=== PATIENT | female | born 1980 | race Caucasian/White ===

== ENCOUNTER 2017-10-18 16:53 | Emergency (ER) | payer BC, SELFPAY ==
[2017-10-18 17:12] VITALS: BP 129/75; PULSE 89; RESP 18; TEMP 36.8; O2SAT 98; BMI 28.8
--- NOTE | 2017-10-18 17:23 | HMH.EDUTC ---
[facility] [place]ression: Otitis media Qualifiers: Otitis media type: unspecified Laterality: right Qualified Code(s): H66.91 - Otitis media, unspecified, right ear Disposition: Home, Self-Care Condition on Discharge: Good Instructions: Middle Ear Infection, Ear Infections (Middle Ear) (Alternative Therapy), Migraine Headaches (Alternative Therapy), Migraine -- Adult, DI for Sinus Headache, DI for Headache Additional Instructions: Follow up with family doctor Take medication as prescribed Return if needed Warm compresses on ear may help with pain Over the counter Motrin or Tylenol as needed for fever or pain Prescriptions: Amoxicillin [Amoxicillin 500mg Cap] 500 mg PO TID #30 cap Referrals: Demetria Dias PA [Primary Care Provider] - Time of Disposition: 17:36 Medical Decision Making - Medical Records Medical records reviewed: Yes: I reviewed the patient's medical records. Vital Signs: 10/18/17 17:12 Temperature 98.2 F Temperature Source Temporal Artery Scan Pulse Rate [Right] 89 Respiratory Rate 18 Blood Pressure [Right Arm] 129/75 Blood Pressure Mean [Right Arm] 93 Blood Pressure Source [Right Arm] Automatic Cuff Blood Pressure Position [Right Arm] Sitting 02 Sat by Pulse Oximetry 98 Oxygen Delivery Method Room Air - Justin Inquiry Pt receiving controlled substance: No Justin was queried for this patient: No [facility] [place] - General Stated complaint: right ear pain Mode of Arrival: Ambulatory Source of Information: Patient Limitations: No Limitations Description of Symptoms (Recalled from Triage Doc. by RN): HEADACHE, EARACHE HEENT Symptoms (Recalled from RN notes): Yes Resp Symptoms (Recalled from RN notes): No Skin Symptoms (Recalled from RN notes): No MS Symptoms (Recalled from RN notes): No Functional Status (Recalled from RN notes): N - History of Present Illness Provider Complaint: Patient state that she has been having a headache on and off for several days and then she began to have pain in her right ear States that pain has continued to get worse States that today her headache is gone but her ear is hurting worse - Related Data Previous Rx's Medication Instructions Recorded Amoxicillin [Amoxicillin 500mg 500 mg PO TID #30 cap 10/18/17 Cap] Allergies Allergy/AdvReac Type Severity Reaction Status Date / Time diazepam [From VALIUM] Allergy Unknown I-RASH Verified 10/18/17 17:16 fentanyl [FENTANYL] Allergy Unknown I-RASH Verified 10/18/17 17:16 hydrocodone [From LORTAB] Allergy Unknown Verified 10/18/17 17:16 - Worker's Comp Is this a Worker's Comp case?: No [facility] History I have reviewed the patient's past medical history: Yes - *Social History Alcohol Intake: never - Psychiatric History Expresses thoughts of harming self/others: None Suicide Plan Description: No Plan ROS Obtained: Yes All systems reviewed & no additional complaints Physical Exam - General General appearance: alert, in no apparent distress - Expanded ENT Exam TM/Canal exam: Right TM: erythema, bulging - Respiratory Respiratory exam: Present: normal lung sounds bilaterally. Absent: respiratory distress - Cardiovascular Cardiovascular exam: Present: regular rate, normal rhythm. Absent: JVD - Neurological Exam Neurological exam: Present: alert, oriented X3
--- NOTE | 2017-10-18 17:30 | ED_ITS ---
[facility] [place] Impression: Otitis media Qualifiers: Otitis media type: unspecified Laterality: right Qualified Code(s): H66.91 - Otitis media, unspecified, right ear Disposition: Home, Self-Care Condition on Discharge: Good Instructions: Middle Ear Infection, Ear Infections (Middle Ear) (Alternative Therapy), Migraine Headaches (Alternative Therapy), Migraine -- Adult, DI for Sinus Headache, DI for Headache Additional Instructions: Follow up with family doctor Take medication as prescribed Return if needed Warm compresses on ear may help with pain Over the counter Motrin or Tylenol as needed for fever or pain Prescriptions: Amoxicillin [Amoxicillin 500mg Cap] 500 mg PO TID #30 cap Referrals: Demetria Dias PA [Primary Care Provider] - Time of Disposition: 17:36 Medical Decision Making - Medical Records Medical records reviewed: Yes: I reviewed the patient's medical records. Vital Signs: 10/18/17 17:12 Temperature 98.2 F Temperature Source Temporal Artery Scan Pulse Rate [Right] 89 Respiratory Rate 18 Blood Pressure [Right Arm] 129/75 Blood Pressure Mean [Right Arm] 93 Blood Pressure Source [Right Arm] Automatic Cuff Blood Pressure Position [Right Arm] Sitting 02 Sat by Pulse Oximetry 98 Oxygen Delivery Method Room Air - Justin Inquiry Pt receiving controlled substance: No Justin was queried for this patient: No [facility] [place] - General Stated complaint: right ear pain Mode of Arrival: Ambulatory Source of Information: Patient Limitations: No Limitations Description of Symptoms (Recalled from Triage Doc. by RN): HEADACHE, EARACHE HEENT Symptoms (Recalled from RN notes): Yes Resp Symptoms (Recalled from RN notes): No Skin Symptoms (Recalled from RN notes): No MS Symptoms (Recalled from RN notes): No Functional Status (Recalled from RN notes): N - History of Present Illness Provider Complaint: Patient state that she has been having a headache on and off for several days and then she began to have pain in her right ear States that pain has continued to get worse States that today her headache is gone but her ear is hurting worse - Related Data Previous Rx's Medication Instructions Recorded Amoxicillin [Amoxicillin 500mg 500 mg PO TID #30 cap 10/18/17 Cap] Allergies Allergy/AdvReac Type Severity Reaction Status Date / Time diazepam [From VALIUM] Allergy Unknown I-RASH Verified 10/18/17 17:16 fentanyl [FENTANYL] Allergy Unknown I-RASH Verified 10/18/17 17:16 hydrocodone [From LORTAB] Allergy Unknown Verified 10/18/17 17:16 - Worker's Comp Is this a Worker's Comp case?: No [facility] History I have reviewed the patient's past medical history: Yes - *Social History Alcohol Intake: never - Psychiatric History Expresses thoughts of harming self/others: None Suicide Plan Description: No Plan ROS Obtained: Yes All systems reviewed & no additional complaints Physical Exam - General General appearance: alert, in no apparent distress - Expanded ENT Exam TM/Canal exam: Right TM: erythema, bulging - Respiratory Respiratory exam: Present: normal lung sounds bilaterally. Absent: respiratory distress - Cardiovascular Cardiovascular exam: Present: regular rate, normal rhythm. Absent: JVD - Neurological Exam Neurological exam: Present:
== END 2017-10-18 17:43 | disposition home or self-care (01) ==
PROVIDERS: Emergency Provider Nurse Practitioner; Family Provider Physician Assistant; PCP Physician Assistant
DX: H66.91 Otitis media, unspecified, right ear (principal)
CPT/HCPCS: 99202

== ENCOUNTER → 2018-10-16 12:19 | Outpatient (CLI) | payer BC, SELFPAY | PROVIDERS: Visit Provider Nurse Practitioner Obstetrics & Gynecology | DX: N63.10 Unspecified lump in the right breast, unspecified quadrant (principal) | CPT/HCPCS: 36415; 84436; 84443; 84479; 84481 ==

== ENCOUNTER → 2018-10-16 15:33 | Outpatient (CLI) | payer BC, SELFPAY ==
[2018-10-16 14:08] LABS: Free Thyroxine Index 2.5 ug/dL (5.93-13.13); T4 (Thyroxine) 8.8 ug/dl (4.7-13.3); Thyroid Stimulating Hormone 4.35 uIU/ml (0.358-3.740); Triiodothryronine (T3) Uptake 28 % (31-39)
--- NOTE | 2018-10-16 15:37 | US_ITS ---
US breast RT complete INDICATION: Palpable abnormality in the retroareolar region. ORDERING PHYSICIAN: Zev Jiménez MD PATIENT AGE: 38 years COMPARISON: None TECHNIQUE: Complete right breast ultrasound with axilla FINDINGS: No cystic or solid lesions are evident. Specifically, no sonographic anomalies are evident in the retroareolar region. Small axillary lymph nodes are present. IMPRESSION: Unremarkable ultrasound of the right breast BI-RADS Category: 1 Negative If there is indeed a palpable nodule then, mammography is recommended for further evaluation. Negative ultrasound does not exclude the possibility of a nodule. (A letter has been sent to the patient regarding results of the study.)
[2018-10-17 06:17] LABS: Triiodothyronine (T3) Free 2.8 pg/mL (2.0-4.4)
== END ==
PROVIDERS: PCP Emergency Medicine; Visit Provider Nurse Practitioner Obstetrics & Gynecology
DX: N63.10 Unspecified lump in the right breast, unspecified quadrant (principal); E03.9 Hypothyroidism, unspecified
CPT/HCPCS: 36415; 76641; 84436; 84443; 84479; 84481

== ENCOUNTER → 2018-11-17 17:02 | Outpatient (CLI) | payer BC, SELFPAY ==
[2018-11-17 18:32] LABS: Free Thyroxine Index 2.3 ug/dL (5.93-13.13); T4 (Thyroxine) 7.3 ug/dl (4.7-13.3); Triiodothryronine (T3) Uptake 32 % (31-39)
[2018-11-19 08:06] LABS: Triiodothyronine (T3) Free 2.8 pg/mL (2.0-4.4)
== END ==
PROVIDERS: Visit Provider Nurse Practitioner Obstetrics & Gynecology
DX: E03.9 Hypothyroidism, unspecified (principal)
CPT/HCPCS: 36415; 84436; 84443; 84479; 84481

== ENCOUNTER → 2018-12-06 11:55 | Outpatient (CLI) | payer BC, SELFPAY ==
[2018-12-06 13:05] LABS: Free Thyroxine Index 3.4 ug/dL (5.93-13.13); T4 (Thyroxine) 10.1 ug/dl (4.7-13.3); Thyroid Stimulating Hormone 0.17 uIU/ml (0.358-3.740); Triiodothryronine (T3) Uptake 34 % (31-39)
[2018-12-07 17:30] LABS: Triiodothyronine (T3) Free 5.7 pg/mL (2.0-4.4)
== END ==
PROVIDERS: Visit Provider Nurse Practitioner Obstetrics & Gynecology
DX: E03.9 Hypothyroidism, unspecified (principal); R53.83 Other fatigue
CPT/HCPCS: 36415; 84436; 84443; 84479; 84481

== ENCOUNTER → 2019-02-07 11:02 | Outpatient (CLI) | payer BC, SELFPAY ==
[2019-02-07 13:11] LABS: Free Thyroxine Index 2.1 ug/dL (5.93-13.13); T4 (Thyroxine) 6.9 ug/dl (4.7-13.3); Thyroid Stimulating Hormone 1.64 uIU/ml (0.358-3.740); Triiodothryronine (T3) Uptake 31 % (31-39)
[2019-02-08 17:33] LABS: Triiodothyronine (T3) Free 4.2 pg/mL (2.0-4.4)
== END ==
PROVIDERS: Visit Provider Nurse Practitioner Obstetrics & Gynecology
DX: R53.83 Other fatigue (principal); N92.6 Irregular menstruation, unspecified
CPT/HCPCS: 36415; 84436; 84443; 84479; 84481

== ENCOUNTER → 2019-06-25 15:32 | Outpatient (CLI) | payer BC, SELFPAY ==
--- NOTE | 2019-06-25 15:37 | XR_ITS ---
PROCEDURE: XR FOOT WT BEARING RT 3V CLINICAL INDICATION: pain COMPARISON: No exams were available for comparison FINDINGS: No fracture or dislocation. No lytic or blastic change. There is normal mineralization. The joint spaces are well-preserved. No significant degenerative/arthritic changes. No erosive changes evident. Other findings:2.0 millimeter plantar calcaneal spur. IMPRESSION: No acute findings. Dictated by: Abdon Salinas 06/25/2019 15:56 Electronically signed by Abdon Salinas in [place] 06/25/2019 15:56
--- NOTE | 2019-06-25 15:37 | XR_ITS ---
PROCEDURE: XR FOOT WT BEARING LT 3V CLINICAL INDICATION: pain in foot COMPARISON: No exams were available for comparison FINDINGS: No fracture or dislocation. No lytic or blastic change. There is normal mineralization. The joint spaces are well-preserved. No significant degenerative/arthritic changes. No erosive changes evident. Other findings:2.0 millimeter plantar calcaneal spur. IMPRESSION: No acute findings. Dictated by: Abdon Salinas 06/25/2019 15:57 Electronically signed by Abdon Salinas in [place] 06/25/2019 15:57
== END ==
PROVIDERS: PCP Nurse Practitioner Family; Visit Provider Nurse Practitioner Family
DX: M25.571 Pain in right ankle and joints of right foot (principal); S99.922A Unspecified injury of left foot, initial encounter
CPT/HCPCS: 73630

== ENCOUNTER → 2019-07-27 15:37 | Outpatient (CLI) | payer OTHER, SELFPAY ==
--- NOTE | 2019-07-27 15:39 | MR_ITS ---
PROCEDURE: MR FOOT RT WO/W CON CLINICAL INDICATION: metatarsal stress injury,entrapment syndrome Right foot pain for 7 months. Injury with pain between 3rd and 4th digits, stress fracture right foot, capsulitis of the MTP joint COMPARISON: XR FOOT WT BEARING RT 3V from 06/25/2019 TECHNIQUE: Routine multiplanar multi echo sequences are performed without and with gadolinium enhancement. FINDINGS: No bone marrow edema evident. No evidence of stress fracture. No fracture or dislocation apparent. The tibiofibular and talofibular ligaments appear intact. No definite deltoid ligament tear. No tendinous abnormality. There is small amount of fluid along the lateral and anterior aspect of the ankle joint. No evidence of Armstrong's neuroma. IMPRESSION: 1. Small ankle joint effusion. 2. Otherwise negative MRI of the right foot Dictated by: Bandar Butt MD 07/31/2019 06:18 Electronically signed by Bandar Butt MD in [place] 07/31/2019 06:18
== END ==
PROVIDERS: PCP Physician Assistant; Referring Provider Podiatrist; Visit Provider Podiatrist
DX: M84.374A Stress fracture, right foot, initial encounter for fracture (principal)
CPT/HCPCS: 73720

== ENCOUNTER → 2020-04-12 10:32 | Outpatient (CLI) | payer MEDICAID, SELFPAY ==
[2020-04-12 11:02] LABS: Basophils # 0.1 K/mm3 (0-0.2); Basophils % 0.8 % (0.1-2.0); Eosinophils # 0.2 K/mm3 (0.0-0.4); Eosinophils % 2.1 % (0.1-12.0); Hematocrit 38.2 % (37.0-47.0); Hemoglobin 12.7 g/dL (12.2-16.2); Lymphocytes # 2.4 K/mm3 (0.7-4.5); Lymphocytes % 30.6 % (10-50); Mean Corpuscular HGB Conc 33.4 g/dL (31.8-35.4); Mean Corpuscular Hemoglobin 29.5 pg (27.0-31.2); Mean Corpuscular Volume 88.3 fl (81-99); Mean Platelet Volume 7.3 fl (7.4-10.4); Monocytes # 0.4 K/mm3 (0.1-1.0); Monocytes % 5.7 % (1.7-9.3); Neutrophils # 4.7 K/mm3 (1.8-7.8); Neutrophils % 60.8 % (37.0-80.0); Platelet Count 415 K/mm3 (142-424); Red Blood Count 4.32 M/mm3 (4.20-5.40); White Blood Count 7.8 K/mm3 (4.8-10.8)
[2020-04-12 11:42] LABS: Anion Gap 11.6 mEq/L (5-15); Blood Urea Nitrogen 17 mg/dl (7-17); Calcium 9.6 mg/dl (8.4-10.2); Carbon Dioxide 30 mmol/L (22.0-30.0); Chloride 103 mmol/L (98-107); Estimated Glomerular Filt Rate 62 ml/min (>60); GFR (African American) 75 ML/MIN (>60); Glucose 102 mg/dl (74-100); Potassium 4.6 mmoL/L (3.5-5.1); Sodium 140 mmol/L (136-145)
[2020-04-12 12:22] LABS: Triiodothryronine (T3) Uptake 29 % (23.5-40.5)
== END ==
PROVIDERS: Visit Provider Nurse Practitioner Obstetrics & Gynecology
DX: Z00.00 Encounter for general adult medical examination without abnormal findings (principal); R53.82 Chronic fatigue, unspecified
CPT/HCPCS: 36415; 80048; 84436; 84443; 84479; 85025

== ENCOUNTER → 2020-04-18 14:36 | Outpatient (CLI) | payer MEDICAID, SELFPAY ==
--- NOTE | 2020-04-18 14:36 | US_ITS ---
PROCEDURE: US TRANSVAGINAL CLINICAL INDICATION: heavy menstrual bleeding COMPARISON: No exams were available for comparison FINDINGS: UTERUS: 8cm x 4cmx 3cm with a combined endometrial thickness of 6.8mm LEFT OVARY: [id number] with a volume of 3.8ml. RIGHT OVARY: [id number] with a volume of 2.6ml. IMPRESSION: Unremarkable pelvic ultrasound Dictated by: Bandar Butt MD 04/19/2020 07:35 Electronically signed by Bandar Butt MD in [place] 04/19/2020 07:35
== END ==
PROVIDERS: PCP Physician Assistant; Visit Provider Nurse Practitioner Obstetrics & Gynecology
DX: N92.0 Excessive and frequent menstruation with regular cycle (principal)
CPT/HCPCS: 76830

== ENCOUNTER → 2020-05-11 16:46 | Outpatient (CLI) | payer MEDICAID, SELFPAY ==
[2020-05-11 17:01] LABS: Basophils # 0.1 K/mm3 (0-0.2); Basophils % 0.7 % (0.1-2.0); Eosinophils # 0.2 K/mm3 (0.0-0.4); Eosinophils % 2.4 % (0.1-12.0); Hematocrit 35.8 % (37.0-47.0); Hemoglobin 12.1 g/dL (12.2-16.2); Lymphocytes # 3.4 K/mm3 (0.7-4.5); Lymphocytes % 37.8 % (10-50); Mean Corpuscular HGB Conc 33.7 g/dL (31.8-35.4); Mean Corpuscular Hemoglobin 29.7 pg (27.0-31.2); Mean Corpuscular Volume 88.1 fl (81-99); Mean Platelet Volume 7.5 fl (7.4-10.4); Monocytes # 0.5 K/mm3 (0.1-1.0); Monocytes % 5.3 % (1.7-9.3); Neutrophils # 4.8 K/mm3 (1.8-7.8); Neutrophils % 53.8 % (37.0-80.0); Platelet Count 479 K/mm3 (142-424); Red Blood Count 4.07 M/mm3 (4.20-5.40); White Blood Count 8.9 K/mm3 (4.8-10.8)
[2020-05-11 17:57] LABS: Chloride 104 mmol/L (98-107); HCG Qualitative, Serum Negative (Negative); Potassium 4.3 mmoL/L (3.5-5.1); Sodium 139 mmol/L (136-145)
[2020-05-11 18:00] LABS: Anion Gap 13.3 mEq/L (5-15); Blood Urea Nitrogen 15 mg/dl (7-17); Carbon Dioxide 26 mmol/L (22.0-30.0); Estimated Glomerular Filt Rate 70 ml/min (>60); GFR (African American) 84 ML/MIN (>60)
[2020-05-11 18:01] LABS: Calcium 9.5 mg/dl (8.4-10.2); Glucose 113 mg/dl (74-100)
[2020-05-11 19:16] LABS: Coronavirus 19 IgG Antibody Negative (Negative); Coronavirus 19 IgM Antibody Negative (Negative)
== END ==
PROVIDERS: Visit Provider Nurse Practitioner Obstetrics & Gynecology
DX: Z01.818 Encounter for other preprocedural examination (principal); N93.9 Abnormal uterine and vaginal bleeding, unspecified
CPT/HCPCS: 36415; 80048; 84703; 85025; 86328

== ENCOUNTER 2020-05-13 08:40 | Day surgery (SDC) | payer MEDICAID, SELFPAY ==
[2020-05-11 10:31] VITALS: BMI 31.8
[2020-05-13] VITALS (12 sets, daily range): BP systolic 100–119; BP diastolic 61–77; PULSE 72–96; RESP 12–16; TEMP 36.4–36.8; O2SAT 92–100
--- NOTE | 2020-05-13 10:20 | HMH.OPNOTE ---
Date of procedure: 05/13/20 Pre-op Diagnosis:: Menorrhagia Post-op Diagnosis:: Menorrhagia Procedure performed:: Hysteroscopy, dilation and curettage, NovaSure ablation Surgeon:: Zev Jiménez MD COSTUME DESIGNER:: Lloyd Adhikari Anesthesia: LMA Estimated blood loss (mL): 100 Clinical Note:: She is a 40-year-old lady who complains of extremely heavy periods. She had an endometrial biopsy biopsy it was negative and a normal ultrasound. After having discussed the risks and benefits we elected perform a hysteroscopy, dilation and curettage as well as NovaSure ablation. Operative findings:: She had what appeared to be a very erythematous endometrial cavity. The endometrium was quite red and raw looking. Tubal ostia were seen. The uterus sounded to 9 cm. The endometrial cavity was 6.5 cm and the width was 4.1 cm. Operative note:: She was taken to the operating room where LMA anesthesia was found be adequate. She was prepped and draped in the normal sterile fashion in the lithotomy position. A weighted speculum was placed in the vagina and the anterior lip of the cervix was grasped with a tenaculum. The cervix was then dilated to approximately 6 mm. I then inserted a hysteroscope into the uterine cavity and the findings were as previously dictated. I then performed a gentle curettage with a medium curette. I then sounded the uterus and determine the length of the uterus. The length was 6.5 cm and the width was 4.1 cm. This was placed into the NovaSure device. I then inserted the NovaSure device and determine the width of the endometrial cavity. I then ran the device through its program. I further inspected the endometrial cavity and was found to be completely charred. I then injected 30 cc of 0.5% ropivacaine at the 3:00, 5:00, 7:00, and 9:00 positions of the cervix. She tolerated procedure well and was taken to the recovery room in excellent condition. All sponge and instrument counts were correct. The estimated blood loss was less than 100 cc. Condition: stable Disposition: PACU Specimens:: Endometrial curettings Complications:: None
--- NOTE | 2020-05-13 10:25 | P.PN_ITS ---
[facility] Anesthesia Record Part I Intake, IV Amount: 800 Estimated blood loss (mL): 20 Urine output (mL): 0 Blood Pressure: 108/71 SaO2: 93 Pulse Rate: 73 Respiratory Rate: 12 Temperature: 98.2 F Patient is:: Awake, Stable Stable to PACU at:: 10:25
--- NOTE | 2020-05-13 10:25 | P.PN_ITS ---
[facility] Anesthesia Checklist - Structural Data Admitted From: Home Planned Operative Procedure/s: d/c hyst Consent for Planned Operative Procedure(s) Verified: Yes - Additional verifications Anesthesia Reactions: No Hx Blood Transfusions: No Blood Transfusion Reaction: No - Airway Assessment C-Spine Mobility Assessed: Yes TMJ Mobility Assessed: Yes Dentition: Good Dentition - Neurological Assessment Level of Consciousness: Awake, Alert, Appropriate - Anesthesia Plan Anesthesia Risk discussed: Yes Anesthesia Plan: Verified ASA Class: II Anesthesia Type: General [facility] History I have reviewed the patient's past medical history: Yes Medical History: Reports:: Anxiety Denies:: Cancer, Diabetes Mellitus Type 1, Diabetes Mellitus Type 2, Internal Pacemaker, MRSA, Seizures *Have you ever received a pneumonia vaccine?: No *Have you received a flu vaccine this season?: No Other Medical History: Reports: Hypothyroidism, Thyroid Disease. Denies: Blood Transfusion Reaction Anesthesia experience/problems:: none Other Surgeries: Yes: No Previous Surgery, Tubal Ligation. No: Pacemaker Amputation: No Fractures: No - *Social History Last grade of school completed: Advanced degree Smoking Status: Never smoker Tobacco Type: cigarettes Alcohol Intake: never Substance Use Type: denies use *Occupational Status:: employed Housing: house Household Members: spouse *Travel in the last 8 weeks: None - Psychiatric History Pschychiatric History:: Reports:: Anxiety Family Hx:: No significant family history
--- NOTE | 2020-05-14 08:40 | P.PN_ITS ---
[facility] Anesthesia Record Part II Discharge Time: 11:01 Destination: Surgical Day Care (OP Surgery) PACU nurse assessment reviewed?: Yes Patient Condition:: Good Anesthesia Complications:: None Swallowing reflex intact?: Yes Cyanosis?: No Blood Pressure: 100/61 Pulse Rate: 86 Temperature: 97.7 F Mental Status: Alert & Oriented Pain level:: 0 Nausea and/or vomitting:: None Intake, IV Amount: 0
[2020-05-14 08:41] VITALS: BP 100/61; PULSE 86; TEMP 36.5
== END 2020-05-13 12:15 | disposition home or self-care (01) ==
LOC: OR 08:42
PROVIDERS: PCP Physician Assistant; Visit Provider Nurse Practitioner Obstetrics & Gynecology
PROC: 0U5B8ZZ Destruction of Endometrium, Via Natural or Artificial Opening Endoscopic (ICD-10-PCS; CPT 58563; principal; 2020-05-13 10:00)
DX: N92.0 Excessive and frequent menstruation with regular cycle (principal); F41.9 Anxiety disorder, unspecified; E03.9 Hypothyroidism, unspecified; Z88.8 Allergy status to other drugs, medicaments and biological substances; Z88.6 Allergy status to analgesic agent; Z79.899 Other long term (current) drug therapy
CPT/HCPCS: 58563; 96374; J2405

== ENCOUNTER 2020-05-20 13:45 | Emergency (ER) | payer MEDICAID, SELFPAY ==
[2020-05-20 14:14] LABS: Color,Urine Yellow (Yellow)
[2020-05-20 14:15] LABS: Apearance,Urine Clear (Clear); Bilirubin,Urine Negative (Negative); Blood, Urine Negative (Negative); Glucose,Urine (UA) Negative (Negative); Ketones,Urine Negative (Negative); Protein,Urine Negative (Negative); Urobilinogen,Urine 0.2 EU/dl (0.2)
[2020-05-20 14:16] LABS: UTC Leukocyte Esterase,Urine 1+ (Negative); UTC Nitrate,Urine Negative (Negative)
--- NOTE | 2020-05-20 14:26 | HMH.EDUTC ---
[facility] [place] Impression: UTI (urinary tract infection) Qualifiers: Urinary tract infection type: acute cystitis Hematuria presence: without hematuria Qualified Code(s): N30.00 - Acute cystitis without hematuria Ovarian cyst Qualifiers: Laterality: bilateral Qualified Code(s): N83.201 - Unspecified ovarian cyst, right side Disposition: Home, Self-Care Condition on Discharge: Good Instructions: DI for Urinary Tract Infection (UTI), DI for Ovarian Cyst Additional Instructions: You have been evaluated for abdominal pain, diagnosed with ovarian cysts and a urinary tract infection. There was also abnormal swelling within your uterus, possibly due to ablation. Macrobid as prescribed. Take Tylenol and ibuprofen for pain. Please follow-up with Dr. Oconnell in clinic. To the emergency department if you have any new or worsening symptoms, vomiting, pain, other concerns. Prescriptions: Nitrofurantoin Monohyd/M-Cryst [Nitrofurantoin Catron-Mcr 100 mg] 100 mg PO BID #10 cap Transmission Status: Received by Clinic Pharm[facility] Referrals: PCP,No [Primary Care Provider] - Time of Disposition: 19:45 Medical Decision Making - Medical Records Medical records reviewed: No: I reviewed the patient's medical records. - Justin Inquiry Pt receiving controlled substance: No Vital Signs: 05/20/20 14:27 05/20/20 14:35 05/20/20 14:57 Temperature 98 F 98.0 F Temperature Source Oral Oral Pulse Rate Pulse Rate [Right Brachial] 88 75 78 Respiratory Rate 14 16 Blood Pressure Blood Pressure [Right Arm] 133/63 126/77 122/97 H Blood Pressure Mean [Right Arm] 86 93 105 Blood Pressure Source [Right Arm] Automatic Cuff Automatic Cuff Automatic Cuff Blood Pressure Position [Right Arm] Sitting Sitting Sitting 02 Sat by Pulse Oximetry 99 99 99 Oxygen Delivery Method Room Air Room Air Room Air 05/20/20 17:00 05/20/20 18:21 Temperature 98.0 F Temperature Source Pulse Rate 70 Pulse Rate [Right Brachial] 72 Respiratory Rate 18 18 Blood Pressure 121/61 Blood Pressure [Right Arm] 113/63 Blood Pressure Mean [Right Arm] 79 Blood Pressure Source [Right Arm] Automatic Cuff Blood Pressure Position [Right Arm] Sitting 02 Sat by Pulse Oximetry 100 Oxygen Delivery Method Room Air Room Air - Lab Data Lab Results 05/20/20 13:56: Urine Color Straw, Urine Appearance Clear, Urine pH 7.0, Ur Specific [place] 1.010, Urine Protein Negative, Urine Glucose (UA) Negative, Urine Ketones Negative, Urine Blood Negative, Urine Nitrate Negative, Urine Bilirubin Negative, Urine Urobilinogen 0.2, Ur Leukocyte Esterase 1+ A, Urine RBC None, Urine WBC Occasional, Ur Squamous Epith Cells Occasional, Amorphous Sediment Trace, Urine Bacteria None 05/20/20 13:56: Urine HCG, Qual Negative 05/20/20 14:13: Urine Color Yellow, Urine Appearance Clear, Urine pH 7.0, Ur Specific [place] 1.010, Urine Protein Negative, Urine Glucose (UA) Negative, Urine Ketones Negative, Urine Blood Negative, Urine Nitrate Negative, Urine Bilirubin Negative, Urine Urobilinogen 0.2, Ur Leukocyte Esterase 1+ A 05/20/20 14:50: WBC 15.5 H, RBC 4.27, Hgb 12.4, Hct 36.9 L, MCV 86.6, MCH 29.1, MCHC 33.7, RDW 14.4, Plt Count 461 H, MPV 7.3 L, Neut % (Auto) 68.7, Lymph % (Auto) 22.2, Catron % (Auto) 6.1, Eos % (Auto) 2.6, Baso % (Auto) 0.4, Neut # (Auto) 10.6 H, Lymph # (Auto) 3.4, Catron # (Auto) 0.9, Eos # (Auto) 0.4, Baso # (Auto) 0.1, Total Counted 100, Neutrophils % (Manual) 61, Lymphocytes % (Manual) 32, Monocytes % (Manual) 7, Platelet Estimate Moderate increase, RBC Morphology Normal 05/20/20 14:50: Sodium 138, Potassium 4.3, Chloride 104, Carbon Dioxide 26, Anion Gap 12.3, BUN 13, Creatinine 0.80, Estimated Creat Clear 122, Estimated GFR 80, Est GFR ( Amer) 97, Glucose 89, Calcium 9.5, Total Bilirubin 0.3, AST 24, ALT 28, Alkaline Phosphatase 71, Total Protein 7.8, Albumin 4.3, Globulin 3.5 H, Albumin/Globulin Ratio 1.2 05/20/20 14:52: Tst Clinic Negative Result diag
[2020-05-20 14:27] VITALS: BP 133/63; PULSE 88; RESP 14; TEMP 36.6; O2SAT 99; BMI 31.8
--- NOTE | 2020-05-20 14:34 | PC.NURSE ---
PATIENT SENT TO ER PER ONEAL HILARIO APRN AFTER SPEAKING WITH DR. GILLILAND FOR FURTHER EVALUATION. REPORT GIVEN TO Abiola MANCILLA RN
[2020-05-20 14:35] VITALS: BP 126/77; PULSE 75; RESP 16; TEMP 36.7; O2SAT 99; BMI 31.8
--- NOTE | 2020-05-20 14:51 | CT_ITS ---
PROCEDURE: CT ABDOMEN PELVIS W CON CLINICAL INDICATION: RLQ pain Right lower quadrant pain, right mid back pain COMPARISON: No exams were available for comparison TECHNIQUE: IV Contrast: 75ML OPTIRAY 350 Oral Contrast None Axial images obtained with sagittal and coronal reformats. All CT scans at the facility use one or more dose reduction, viz: automated exposure control, ma/kV adjustment per patient size (including targeted exams where dose is matched to indication, i.e. head), or iterative reconstruction technique. FINDINGS: LOWER THORAX: No acute finding ABDOMEN & PELVIS: The liver, gallbladder, spleen, adrenal glands, pancreas, and kidneys have an unremarkable appearance. No renal or ureteral calculi. The appendix is not clearly delineated. No evidence of appendicitis. There is a small lymph node in the right lower quadrant measuring 1.8 0.8 cm. No intestinal obstruction or free air. There is a tiny umbilical hernia which contains fat. The bowel gas pattern is nonspecific. There is a 4.3 by 3.8 cm right ovarian cyst and there is a 1.9 cm left ovarian cyst. Gas is present within the endometrial cavity along with mild prominence of the low-density endometrial stripe which measures 2.3 cm. Patient reports a recent urine ablation. These findings may be postsurgical. They could also be seen with infection. Please correlate with the clinical parameters. No acute bony anomalies. IMPRESSION: 1. No evidence of appendicitis. 2. Bilateral ovarian cysts measuring up to 4.3 cm on the right. These may be better evaluated with pelvic ultrasound if clinically warranted. 3. Prominent low-density changes within the endometrium with a small amount of endometrial gas. These findings may be related to the recent uterine ablation. Cannot exclude underlying infection based on the CT findings. Please correlate with clinical parameters. Dictated by: Bandar Butt MD 05/20/2020 17:01 Bandar Butt MD in [place] 05/20/2020 17:01
[2020-05-20 14:53] LABS: UTC Pregnancy Test, Urine Negative (Negative)
--- NOTE | 2020-05-20 14:54 | HMH.EDGENADL ---
ED Disposition Clinical Impression: UTI (urinary tract infection) Qualifiers: Urinary tract infection type: acute cystitis Hematuria presence: without hematuria Qualified Code(s): N30.00 - Acute cystitis without hematuria Ovarian cyst Qualifiers: Laterality: bilateral Qualified Code(s): N83.201 - Unspecified ovarian cyst, right side Disposition: Home, Self-Care Condition on Discharge: Good Instructions: DI for Urinary Tract Infection (UTI), DI for Ovarian Cyst Additional Instructions: You have been evaluated for abdominal pain, diagnosed with ovarian cysts and a urinary tract infection. There was also abnormal swelling within your uterus, possibly due to ablation. Macrobid as prescribed. Take Tylenol and ibuprofen for pain. Please follow-up with Dr. Oconnell in clinic. To the emergency department if you have any new or worsening symptoms, vomiting, pain, other concerns. Prescriptions: Nitrofurantoin Monohyd/M-Cryst [Nitrofurantoin Wolfe-Mcr 100 mg] 100 mg PO BID #10 cap Transmission Status: Received by [facility] Referrals: PCP,No [Primary Care Provider] - Time of Disposition: 18:10 - Critical Care Critical Care Time: No Attestation: On 05/20/20, the high probability of a clinically significant, sudden or life threatening deterioration of the following system(s) required my full and direct attention, intervention and personal management. The time I documented below is in addition to time spent performing reported procedures but includes the following listed in this critical care notation. Medical Decision Making - Medical Records Medical records reviewed: Yes: I reviewed the patient's medical records. - Justin Inquiry Pt receiving controlled substance: No Vital Signs: 05/20/20 14:27 05/20/20 14:35 05/20/20 14:57 Temperature 98 F 98.0 F Temperature Source Oral Oral Pulse Rate Pulse Rate [Right Brachial] 88 75 78 Respiratory Rate 14 16 Blood Pressure Blood Pressure [Right Arm] 133/63 126/77 122/97 H Blood Pressure Mean [Right Arm] 86 93 105 Blood Pressure Source [Right Arm] Automatic Cuff Automatic Cuff Automatic Cuff Blood Pressure Position [Right Arm] Sitting Sitting Sitting 02 Sat by Pulse Oximetry 99 99 99 Oxygen Delivery Method Room Air Room Air Room Air 05/20/20 17:00 05/20/20 18:21 Temperature 98.0 F Temperature Source Pulse Rate 70 Pulse Rate [Right Brachial] 72 Respiratory Rate 18 18 Blood Pressure 121/61 Blood Pressure [Right Arm] 113/63 Blood Pressure Mean [Right Arm] 79 Blood Pressure Source [Right Arm] Automatic Cuff Blood Pressure Position [Right Arm] Sitting 02 Sat by Pulse Oximetry 100 Oxygen Delivery Method Room Air Room Air - Lab Data Lab Results 05/20/20 13:56: Urine Color Straw, Urine Appearance Clear, Urine pH 7.0, Ur Specific [place] 1.010, Urine Protein Negative, Urine Glucose (UA) Negative, Urine Ketones Negative, Urine Blood Negative, Urine Nitrate Negative, Urine Bilirubin Negative, Urine Urobilinogen 0.2, Ur Leukocyte Esterase 1+ A, Urine RBC None, Urine WBC Occasional, Ur Squamous Epith Cells Occasional, Amorphous Sediment Trace, Urine Bacteria None 05/20/20 13:56: Urine HCG, Qual Negative 05/20/20 14:13: Urine Color Yellow, Urine Appearance Clear, Urine pH 7.0, Ur Specific [place] 1.010, Urine Protein Negative, Urine Glucose (UA) Negative, Urine Ketones Negative, Urine Blood Negative, Urine Nitrate Negative, Urine Bilirubin Negative, Urine Urobilinogen 0.2, Ur Leukocyte Esterase 1+ A 05/20/20 14:50: WBC 15.5 H, RBC 4.27, Hgb 12.4, Hct 36.9 L, MCV 86.6, MCH 29.1, MCHC 33.7, RDW 14.4, Plt Count 461 H, MPV 7.3 L, Neut % (Auto) 68.7, Lymph % (Auto) 22.2, Wolfe % (Auto) 6.1, Eos % (Auto) 2.6, Baso % (Auto) 0.4, Neut # (Auto) 10.6 H, Lymph # (Auto) 3.4, Wolfe # (Auto) 0.9, Eos # (Auto) 0.4, Baso # (Auto) 0.1, Total Counted 100, Neutrophils % (Manual) 61, Lymphocytes % (Manual) 32, Monocytes % (Manual) 7, Platelet Estimate Moderate increase, RBC Morphology
[2020-05-20 14:55] LABS: Microscopic, Urine URINE MICROSCOPIC (MICROSCOPIC)
[2020-05-20 14:57] VITALS: BP 122/97; PULSE 78; O2SAT 99
[2020-05-20 14:58] LABS: Appearance,Urine CLEAR (Clear); Bilirubin,Urine Negative (Negative); Blood, Urine Negative (Negative); Color,Urine STRAW (Yellow); Glucose,Urine (UA) Negative (Negative); Ketones,Urine Negative (Negative); Leukocyte Esterase,Urine 1+ (Negative); Nitrate,Urine Negative (Negative); Protein,Urine Negative (Negative); Urobilinogen,Urine 0.2 EU/dl (0.2)
[2020-05-20 15:00] LABS: Basophils # 0.1 K/mm3 (0-0.2); Basophils % 0.4 % (0.1-2.0); Eosinophils # 0.4 K/mm3 (0.0-0.4); Eosinophils % 2.6 % (0.1-12.0); Hematocrit 36.9 % (37.0-47.0); Hemoglobin 12.4 g/dL (12.2-16.2); Lymphocytes # 3.4 K/mm3 (0.7-4.5); Lymphocytes % 22.2 % (10-50); Mean Corpuscular HGB Conc 33.7 g/dL (31.8-35.4); Mean Corpuscular Hemoglobin 29.1 pg (27.0-31.2); Mean Corpuscular Volume 86.6 fl (81-99); Mean Platelet Volume 7.3 fl (7.4-10.4); Monocytes # 0.9 K/mm3 (0.1-1.0); Monocytes % 6.1 % (1.7-9.3); Neutrophils # 10.6 K/mm3 (1.8-7.8); Neutrophils % 68.7 % (37.0-80.0); Platelet Count 461 K/mm3 (142-424); Red Blood Count 4.27 M/mm3 (4.20-5.40); Red Cell Distribution Width 14.4 % (11.5-17.5); White Blood Count 15.5 K/mm3 (4.8-10.8)
[2020-05-20 15:01] LABS: MANUAL DIFFERENTIAL MANUAL DIFFERENTIAL (MANUAL DIFF)
[2020-05-20 15:02] LABS: Urine Pregnancy, HCG Qual. Negative (Negative)
[2020-05-20 15:06] LABS: Chloride 104 mmol/L (98-107); Potassium 4.3 mmoL/L (3.5-5.1); Sodium 138 mmol/L (136-145)
[2020-05-20 15:08] LABS: Amorphous Sediment,Urine Trace /lpf; Squamous Epithelial Cell,Urine Occasional #/hpf (0-5); WBC,Urine Occasional #/hpf (0-3)
[2020-05-20 15:09] LABS: Alanine Aminotransferase 28 U/L (12-78); Albumin Level 4.3 g/dl (3.5-5.0); Albumin/Globulin Ratio 1.2 (1.1-1.8); Alkaline Phosphatase 71 U/L (38-126); Anion Gap 12.3 mEq/L (5-15); Aspartate Amino Transferase 24 U/L (14-36); Bilirubin,Total 0.3 mg/dl (0.2-1.3); Blood Urea Nitrogen 13 mg/dl (7-17); Carbon Dioxide 26 mmol/L (22.0-30.0); Creatinine Clearance Estimated 122 mL/min (50-200); Estimated Glomerular Filt Rate 80 ml/min (>60); GFR (African American) 97 ML/MIN (>60); Globulin 3.5 g/dL (1.3-3.2); Total Protein,Serum 7.8 g/dl (6.3-8.2)
[2020-05-20 15:10] LABS: Calcium 9.5 mg/dl (8.4-10.2); Glucose 89 mg/dl (74-100); Lymphocytes % 32 % (10-50); Monocytes % 7 % (2-9); Neutrophils % 61 % (42-76); Platelet Estimate Moderate Increase; RBC Morphology Normal; Total Cells Counted 100
--- NOTE | 2020-05-20 15:50 | PC.NURSE ---
Pt up to restroom
[2020-05-20 17:00] VITALS: BP 113/63; PULSE 72; RESP 18; O2SAT 100
[2020-05-20 18:21] VITALS: BP 121/61; PULSE 70; RESP 18; TEMP 36.7; O2SAT 100
== END 2020-05-20 18:21 | disposition home or self-care (01) ==
LOC: UTC 13:50 → ER 14:35
PROVIDERS: Emergency Medicine; Emergency Provider Nurse Practitioner Family
DX: N30.00 Acute cystitis without hematuria (principal); N83.201 Unspecified ovarian cyst, right side; F41.9 Anxiety disorder, unspecified; E03.9 Hypothyroidism, unspecified; Z88.8 Allergy status to other drugs, medicaments and biological substances
CPT/HCPCS: 74177; 80053; 81001; 81003; 81025; 85007; 85025; 87086; 99283; Q9967

== ENCOUNTER → 2021-03-06 16:53 | Outpatient (CLI) | payer OTHER, SELFPAY ==
--- NOTE | 2021-03-06 16:54 | MM_ITS ---
PROCEDURE: MM DIG SCREENING MAMM BI W/CAD Digital Breast Tomosynthesis Included CLINICAL INDICATION: BASELINE Routine Screening Mammogram COMPARISON: No exams were available for comparison TECHNIQUE: Standard CC and MLO images and 3D Tomosynthesis was obtained. R2 CAD reviewed. FINDINGS: There are scattered fibroglandular elements which may obscure a lesion on mammography. This is the patient's baseline mammograms. At time of exam patient stated a palpable area in the lower inner quadrant of the left breast. No dominant mass or indirect evidence of malignancy. No suspicious type microcalcifications. Limited left breast ultrasound for further evaluation of the reported palpable lump is recommended. IMPRESSION: Normal bilateral baseline digital screening mammograms. Patient reported palpable area lower inner quadrant left breast at time of mammogram. Therefore, limited left breast ultrasound for further evaluation of the reported palpable lump is recommended. BI-RAD Category: 0 Need Additional Imaging Evaluation FOLLOW-UP: IMM Immediate Follow-up Recommended (A letter has been sent to the patient regarding results of the study.) Dictated by: Joel Nance MD 03/08/2021 08:18 Joel Nance MD in [place] 03/08/2021 08:18
== END ==
PROVIDERS: PCP Physician Assistant; Visit Provider Nurse Practitioner Obstetrics & Gynecology
DX: Z12.31 Encounter for screening mammogram for malignant neoplasm of breast (principal)
CPT/HCPCS: 77063; 77067

== ENCOUNTER → 2021-03-27 10:57 | Outpatient (CLI) | payer OTHER, SELFPAY ==
--- NOTE | 2021-03-27 10:57 | US_ITS ---
PROCEDURE: US BREAST LT COMPLETE CLINICAL INDICATION: abnormal xmg Follow-up abnormal mammogram, palpable nodule reported left breast COMPARISON: US BREASTRT US breast RT complete from 10/16/2018 MG MM DIG SCREENING MAMM BI W/CAD from 03/06/2021 FINDINGS: General survey performed of the left breast and could in the palpable area of concern reported at 6 o'clock. No cyst or solid nodules apparent. IMPRESSION: Negative ultrasound of the left breast. BI-RADS category 1, negative. A negative mammogram and negative ultrasound does not exclude the possibility of malignancy. If there is indeed a palpable nodule then, it should be managed on a clinical basis If there is no palpable nodule then suggest resume screening mammogram in March 2022 Dictated by: Bandar Butt MD 04/03/2021 08:59 Bandar Butt MD in [place] 04/03/2021 08:59
== END ==
PROVIDERS: PCP Physician Assistant; Visit Provider Nurse Practitioner Obstetrics & Gynecology
DX: R92.8 Other abnormal and inconclusive findings on diagnostic imaging of breast (principal)
CPT/HCPCS: 76641

== ENCOUNTER 2021-07-30 09:32 | Emergency (ER) | payer OTHER, SELFPAY ==
--- NOTE | 2021-07-30 11:02 | HMH.EDUTC ---
[facility] [place] Disposition Clinical Impression: Strep throat Disposition: Home, Self-Care Condition on Discharge: Good Instructions: Strep Throat, DI for Strep Throat Additional Instructions: Drink plenty of fluids. Take tylenol or ibuprofen for pain or fever. Take the medications as directed. Follow up with your regular doctor. GO TO THE ER FOR ANY WORSENING SYMPTOMS Throw your tooth brush away and get a new one. Prescriptions: Amoxicillin [Amoxicillin 500mg Tab] 500 mg PO TID 10 Days #30 tab Transmission Status: [id number] methylPREDNISolone [Medrol] 4 mg PO DIRECTED 6 Days #21 packet Transmission Status: [id number] Referrals: Demetria Dias PA [Primary Care Provider] - Forms: Work/School Release Time of Disposition: 11:14 Medical Decision Making - Medical Records Medical records reviewed: No: I reviewed the patient's medical records. - Justin Inquiry Pt receiving controlled substance: No Vital Signs: 07/30/21 11:08 07/30/21 11:50 Temperature 97.5 F L 97.5 F L Temperature Source Oral Pulse Rate 82 Pulse Rate [Left] 72 Respiratory Rate 14 14 Blood Pressure 128/71 Blood Pressure [Right Arm] 128/71 Blood Pressure Mean [Right Arm] 90 02 Sat by Pulse Oximetry 97 - Lab Data Lab results reviewed: Yes: I reviewed the patient's lab results. Lab Results 07/30/21 11:15: Strep Scn Rapid Clinic Positive A [facility] [place] HPI - General Stated complaint: rt ear pain, sore throat Time Seen by Provider: 07/30/21 11:02 - History of Present Illness Provider Complaint: She c/o sore throat and a cough for the past 2 days. 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 She denies fever. She has been vaccinated against covid-19. - Related Data Home Medications Medication Instructions Recorded Confirmed SUMAtriptan succinate [Sumatriptan See Rx Instructions PO NEEDED 05/11/20 02/27/21 Succinate] PRN Previous Rx's Medication Instructions Recorded escitalopram oxalate 20 mg tablet 20 mg PO DAILY #90 tab 03/16/21 levothyroxine 50 mcg tablet 50 mcg PO DAILY #90 tab 04/06/21 thyroid (pork) 30 mg tablet See Rx Instructions .ROUTE 04/07/21 .COMPLEX #90 tablet Amoxicillin [Amoxicillin 500mg Tab] 500 mg PO TID 10 Days #30 tab 07/30/21 methylPREDNISolone [Medrol] 4 mg PO DIRECTED 6 Days #21 07/30/21 packet Allergies Allergy/AdvReac Type Severity Reaction Status Date / Time diazepam [From VALIUM] Allergy Unknown I-RASH Verified 02/27/21 16:43 fentanyl [FENTANYL] Allergy Unknown I-RASH Verified 02/27/21 16:43 hydrocodone [From LORTAB] Allergy Unknown Verified 02/27/21 16:43 diphenhydramine Allergy Verified 02/27/21 16:43 [From Benadryl] [facility] History - Hepatitis A Screen Attestation statement:: This patient has been screened for Hepatitis A risk factors. I have reviewed the patient's past medical history: Yes Medical History: Reports:: Anxiety Denies:: Cancer, Diabetes Mellitus Type 1, Diabetes Mellitus Type 2, Internal Pacemaker, MRSA, Seizures Other Medical History: Reports: Hypothyroidism, Thyroid Disease. Denies: Blood Transfusion Reaction Other Surgeries: Yes: No Previous Surgery, Tubal Ligation. No: Pacemaker Amputation: No Fractures: No - Social History Smoking Status: Never smoker Alcohol Intake: never Substance Use Type: denies use Occupational Status: other Housing: house Household Members: spouse - Psychiatric History Pschychiatric History:: Reports:: Anxiety Family Hx:: No significant family history ROS Obtained: Yes All systems reviewed & no additional complaints - Constitutional Constitutional: Reports as per HPI - Eyes Eyes: Denies eye discharge - ENT Ears, Nose, Mouth, and Throat: Reports as per HPI - Cardiovascular Cardiovascular: Denies chest pain - Respiratory Respiratory: Reports chest congestion, Reports cough, De
[2021-07-30 11:08] VITALS: BP 128/71; PULSE 72; RESP 14; TEMP 36.4; O2SAT 97; BMI 32.4
[2021-07-30 11:21] LABS: UTC Strep Screen (Rapid) Positive (Negative)
[2021-07-30 11:50] VITALS: BP 128/71; PULSE 82; RESP 14; TEMP 36.4
== END 2021-07-30 11:52 | disposition home or self-care (01) ==
PROVIDERS: Emergency Provider Nurse Practitioner Family; PCP Physician Assistant
DX: J02.0 Streptococcal pharyngitis (principal); F41.9 Anxiety disorder, unspecified
CPT/HCPCS: 87880; 99202; G0463

== ENCOUNTER → 2021-10-11 08:27 | Outpatient (CLI) | payer OTHER, SELFPAY | PROVIDERS: Visit Provider Nurse Practitioner | DX: U07.1 COVID-19 (principal) | CPT/HCPCS: C9803; U0003; U0005 ==

== ENCOUNTER → 2022-02-17 09:04 | Outpatient (CLI) | payer OTHER, SELFPAY ==
[2022-02-17 10:09] LABS: Basophils # 0.2 K/mm3 (0-0.2); Basophils % 2.2 % (0.1-2.0); Eosinophils # 0.1 K/mm3 (0.0-0.4); Eosinophils % 1.8 % (0.1-12.0); Hematocrit 41.8 % (37.0-47.0); Hemoglobin 13.9 g/dL (12.2-16.2); Lymphocytes # 2.8 K/mm3 (0.7-4.5); Lymphocytes % 37.4 % (10-50); Mean Corpuscular HGB Conc 33.1 g/dL (31.8-35.4); Mean Corpuscular Hemoglobin 29.6 pg (27.0-31.2); Mean Corpuscular Volume 89.3 fl (81-99); Mean Platelet Volume 7.8 fl (7.4-10.4); Monocytes # 0.4 K/mm3 (0.1-1.0); Monocytes % 5.2 % (1.7-9.3); Neutrophils % 53.5 % (37.0-80.0); Platelet Count 526 K/mm3 (142-424); Red Blood Count 4.69 M/mm3 (4.20-5.40); Red Cell Distribution Width 13.7 % (11.5-17.5); White Blood Count 7.6 K/mm3 (4.8-10.8)
[2022-02-17 10:35] LABS: Alanine Aminotransferase 23 U/L (12-78); Albumin Level 4.1 g/dl (3.5-5.0); Albumin/Globulin Ratio 1.3 (1.1-1.8); Alkaline Phosphatase 90 U/L (38-126); Anion Gap 11.8 mEq/L (5-15); Aspartate Amino Transferase 23 U/L (14-36); Blood Urea Nitrogen 12 mg/dl (7-17); Calcium 9.5 mg/dl (8.4-10.2); Carbon Dioxide 27 mmol/L (22.0-30.0); Chloride 105 mmol/L (98-107); Chol/HDL Ratio 5.6 (1-3.5); Cholesterol 272 mg/dl (140-200); Estimated Glomerular Filt Rate 69 ml/min (>60); GFR (African American) 83 ML/MIN (>60); Globulin 3.1 g/dL (1.3-3.2); Glucose 113 mg/dl (74-100); HDL Cholesterol 49 mg/dl (40-60); Potassium 4.8 mmoL/L (3.5-5.1); Sodium 139 mmol/L (136-145); Total Protein,Serum 7.2 g/dl (6.3-8.2); Triglycerides 133 mg/dl (30-150); VLDL Cholesterol 27 mg/dL (0-40)
[2022-02-17 10:36] LABS: Bilirubin,Total < 0.1 mg/dl (0.2-1.3)
[2022-02-17 10:46] LABS: Direct LDL Cholesterol 182.33 mg/dL (100-129)
[2022-02-17 10:51] LABS: Free Thyroxine Index 2.9 ug/dL (5.93-13.13); T4 (Thyroxine) 10.3 ug/dl (5.53-11.0); Triiodothryronine (T3) Uptake 28 % (23.5-40.5)
[2022-02-17 11:05] LABS: Thyroid Stimulating Hormone 1.35 uIU/mL (0.465-4.68)
[2022-02-18 06:52] LABS: Estradiol 92.3 pg/mL (.); LH 7.8 mIU/mL (.)
[2022-02-18 07:48] LABS: FSH 8.7 mIU/mL (.)
== END ==
PROVIDERS: Visit Provider Nurse Practitioner Obstetrics & Gynecology
DX: Z01.419 Encounter for gynecological examination (general) (routine) without abnormal findings (principal); N95.1 Menopausal and female climacteric states; R53.82 Chronic fatigue, unspecified; E03.9 Hypothyroidism, unspecified; Z79.899 Other long term (current) drug therapy
CPT/HCPCS: 36415; 80053; 80061; 82670; 83001; 83002; 84436; 84443; 84479; 85025

== ENCOUNTER 2022-05-05 10:29 | Emergency (ER) | payer OTHER, SELFPAY ==
--- NOTE | 2022-05-05 10:41 | HMH.EDUTC ---
[facility] [place] Clinical Impression: Sciatica of right side Low back pain Qualifiers: Chronicity: acute Back pain laterality: right Sciatica presence: with sciatica Sciatica laterality: sciatica of right side Qualified Code(s): M54.41 - Lumbago with sciatica, right side Disposition: Home, Self-Care Condition on Discharge: Good Instructions: DI for Low Back Pain, DI for Sciatica, Cyclobenzaprine, Methylprednisolone Injection Additional Instructions: Go home and rest. It would be best if you rested tomorrow too. No heavy lifting. No twisting. Take the oral medications as directed. The muscle relaxer (cyclobenzaprine--Flexeril) will make you drowsy, so don't drive or operate heavy machinery after taking it. Don't start the oral steroids (medrol dose pack) until tomorrow, since you had the shots in here today. Follow up with your regular doctor. GO TO THE ER FOR ANY WORSENING SYMPTOMS OR CONCERN, ESPECIALLY BOWEL OR BLADDER ISSUES, SADDLE AREA NUMBNESS, FEVER, ETC Prescriptions: Cyclobenzaprine HCl [Cyclobenzaprine 10mg Tab] 10 mg PO BIDP PRN #20 tab PRN Reason: Muscle Spasm Transmission Status: Received by [id number] methylPREDNISolone [Medrol] 4 mg PO DIRECTED 6 Days #21 packet Transmission Status: Received by [id number] Referrals: Demetria Disa PA [Primary Care Provider] - Time of Disposition: 11:31 Medical Decision Making - Medical Records Medical records reviewed: No: I reviewed the patient's medical records. - Justin Inquiry Pt receiving controlled substance: No Vital Signs: 05/05/22 10:45 05/05/22 11:37 Temperature 97.9 F 97.9 F Temperature Source Oral Pulse Rate 87 Pulse Rate [Left] 87 Respiratory Rate 16 16 Blood Pressure 105/72 L Blood Pressure [Right Arm] 105/72 L Blood Pressure Mean [Right Arm] 83 02 Sat by Pulse Oximetry 98 Orders (Tests/Meds): ED MEDICATIONS Discontinued Medications Generic Name Dose Route Start Last Admin Trade Name Freq PRN Reason Stop Dose Admin Ketorolac Tromethamine 60 mg 05/05/22 11:29 05/05/22 11:37 Ketorolac 60mg/2ml Vial IM 05/05/22 11:30 60 mg ONCE ONE Administration Methylprednisolone Sodium Succinate 125 mg 05/05/22 11:29 05/05/22 11:37 Methylprednisolone Sod Succ 125mg Vial IM 05/05/22 11:30 125 mg ONCE ONE Administration [facility] - General Stated complaint: RIGHT LOWER BACK AND HIP 3 WEEKS OVER ALL Time Seen by Provider: 05/05/22 10:42 - History of Present Illness Provider Complaint: She c/o low back pain that radiates to her hips on and off for the past 3 weeks. She denies any known injury. - Related Data Home Medications Medication Instructions Recorded Confirmed Thyroid,Pork [Doyline Thyroid] See Rx Instructions .ROUTE .COMPLEX 05/05/22 05/09/22 Previous Rx's Medication Instructions Recorded escitalopram oxalate 20 mg tablet 20 mg PO DAILY #90 tab 03/28/22 Cyclobenzaprine HCl 10 mg PO BIDP PRN #20 tab 05/05/22 [Cyclobenzaprine 10mg Tab] methylPREDNISolone [Medrol] 4 mg PO DIRECTED 6 Days #21 05/05/22 packet levothyroxine 50 mcg tablet 50 mcg PO DAILY #90 tab 05/07/22 Allergies Allergy/AdvReac Type Severity Reaction Status Date / Time diazepam [From VALIUM] Allergy Unknown I-RASH Verified 05/09/22 15:48 fentanyl [FENTANYL] Allergy Unknown I-RASH Verified 05/09/22 15:48 hydrocodone [From LORTAB] Allergy Unknown Verified 05/09/22 15:48 diphenhydramine Allergy Verified 05/09/22 15:48 [From Benadryl] [facility] History - Hepatitis A Screen Attestation statement:: This patient has been screened for Hepatitis A risk factors. I have reviewed the patient's past medical history: Yes Medical History: Reports:: Anxiety Denies:: Cancer, Diabetes Mellitus Type 1, Diabetes Mellitus Type 2, Internal Pacemaker, MRSA, Seizures Other Medical History: Reports: Hypothyroidism, Thyroid Disease. Denies: Blood Transfusion Reaction
[2022-05-05 10:45] VITALS: BP 105/72; PULSE 87; RESP 16; TEMP 36.6; O2SAT 98; BMI 31.5
[2022-05-05 11:37] VITALS: BP 105/72; PULSE 87; RESP 16; TEMP 36.6
== END 2022-05-05 11:42 | disposition home or self-care (01) ==
PROVIDERS: Emergency Provider Nurse Practitioner Family; PCP Physician Assistant
DX: M54.41 Lumbago with sciatica, right side (principal)
CPT/HCPCS: 96372; 99212; G0463

== ENCOUNTER 2022-06-06 16:30 | Outpatient (RCR) | payer OTHER, SELFPAY ==
--- NOTE | 2022-05-15 10:52 | HMH.PTOPEV ---
PT Outpatient Evaluation Rehab PT Outpatient Evaluation Start: 05/15/22 09:49 Freq: Status: Active Protocol: Document 05/15/22 10:28 ANAHY (Rec: 05/15/22 10:52 PHOSORAIDA [id number]) Electronically Signed By Alec Fierro, PT 05/15/22 10:28 Outpatient Therapy Subjective History Subjective History Pt is 42 yowf who presents with c/o R side low back pain x ~ 1 mo with insidious onset of symptoms. 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 She reports feeling less pain now after chiropractor adjustment and pain meds, but still not back to normal. Pain is now mostly in the R hip and worse at the end of the day. She reports no significant PMH. Chief Complaint Pain,Stiff Symptom Type Ache,Dull Symptoms Relieved By Ice Symptoms Aggravated By Physical Activity,Twisting Prior Functional Limitations None Current Functional Limitations Housework,Recreation Activity, Bending/Stooping Symptom Description Constant but Variable Level of pain today (0-10) 3 Pain scale - at its worst (0-10) 10 Lumbopelvic Eval Palapation tenderness right Lumbar/Sacral Palpation Findings Tenderness Lumbar/Sacral Palpation Overall Comment R SI and piriformis Accessory Movement L-spine Vertebrae Accessory Movements Central P/A [place] that Elicit Symptoms L4 bilateral L5 bilateral S1 bilateral Range of Motion Lumbar Spine Active Flexion Range of 0-65 Motion (degrees) Lumbar Spine Active Extension Range of 0-15 Motion (degrees) Left Lumbar Spine Lateral Flexion Active 0-20 Range of Motion (degrees) Right Lumbar Spine Lateral Flexion 0-20 Active Range of Motion (degrees) Manual Muscle Test Bilateral Knee Extension Strength Grade 5 Normal Knee Flexion Strength Grade 5 Normal Hip Flexion Strength Grade 5 Normal Hip Abduction Strength Grade 5 Normal Hip Adduction Strength Grade 5 Normal Extensor Hallucis Longus Strength Grade 5 Normal Ankle Dorsiflexion Strength Grade 5 Normal Gastronemius/Soleus Strength Grade 5 Normal Special Tests Forward Bending Test- Standing Negative Left,Negative Right Hip Scouring (Quadrant) Test Negative Left,Negative Right Hip Remy (MURPHY) Test
== END 2022-06-06 17:30 | disposition home or self-care (01) ==
LOC: PT 16:30
PROVIDERS: PCP Physician Assistant; Visit Provider Physician Assistant
DX: M54.50 Low back pain, unspecified (principal)
CPT/HCPCS: 97010; 97014; 97110; 97163; G0283

== ENCOUNTER → 2022-11-02 21:23 | Outpatient (CLI) | payer BC, SELFPAY | PROVIDERS: PCP Student in an Organized Health Care Education/Training Program; Visit Provider Student in an Organized Health Care Education/Training Program | DX: U07.1 COVID-19 (principal); R51.9 Headache, unspecified; R53.83 Other fatigue | CPT/HCPCS: C9803; U0003; U0005 ==

== ENCOUNTER 2022-12-27 09:51 | Emergency (ER) | payer BC, SELFPAY ==
--- NOTE | 2022-12-27 09:59 | HMH.EDGENADL ---
Discharge Plan Disposition Patient Disposition: Home, Self-Care Prescriptions Prescriptions: New hydrocodone-acetaminophen 5-325 mg tablet 1 tab PO Q6H PRN (Reason: pain) 3 Days Qty: 12 0RF No Action methylprednisolone 4 mg tablets,dose pack See Rx Instructions PO PER PKG DIR Qty: 21 0RF Rx Instructions: PO PER PKG DIR levothyroxine 50 mcg tablet 50 mcg PO DAILY Qty: 90 4RF thyroid (pork) 30 mg tablet 30 mg PO BID Qty: 60 11RF escitalopram oxalate 20 mg tablet 20 mg PO DAILY 30 Days Qty: 30 11RF Referrals Follow up/Referrals: Dario Fortune JR, MD [Physician] - See instructions (see Dr. Fortune tomorrow; you may call his clinic to confirm timing, but he would like to see you tomorrow. ) Demetria Dias PA [Primary Care Provider] - See instructions Clinical Impressions Clinical Impression: Fracture, humerus closed Discharge ED Provider: Bruno Sanders General Adult HPI General Chief complaint: Extremity Injury, Upper Stated complaint: AO 12/27 possible left broken arm Time Seen by Provider: 12/27/22 09:59 History of Present Illness HPI narrative: 42-year-old female presenting status post fall. She had a mechanical fall slipped on something in her house and fell directly onto her left arm. She has had pain between her left elbow and her left shoulder since that time. She states that severe. She has no loss of sensation or motor movement in her left upper extremity. She states she may have hit her head but had some mild injury. She also states she may have hit her back however that does not have a concern at the moment for her. She denies any other significant injuries elsewhere. Pain is moderate at the moment. She states she is allergic to hydrocodone. Related Data Previous Rx's Medication Instructions Recorded levothyroxine 50 mcg tablet 50 mcg PO DAILY thyroid hormone 05/07/22 #90 tabs thyroid (pork) 30 mg tablet 30 mg PO BID thyroid #60 tabs 07/05/22 escitalopram oxalate 20 mg tablet 20 mg PO DAILY Depression 30 days 10/18/22 #30 tabs methylprednisolone 4 mg tablets in See Rx Instructions PO PER PKG DIR 11/02/22 a dose pack #21 tabs hydrocodone 5 mg-acetaminophen 325 1 tab PO Q6H PRN pain 3 days #12 12/27/22 mg tablet tabs Allergies Allergy/AdvReac Type Severity Reaction Status Date / Time diazepam [From VALIUM] Allergy Unknown I-RASH Verified 11/02/22 08:35 fentanyl [FENTANYL] Allergy Unknown I-RASH Verified 11/02/22 08:35 hydrocodone [From LORTAB] Allergy Unknown Verified 11/02/22 08:35 diphenhydramine Allergy Verified 11/02/22 08:35 [From Benadryl] [facility] Disclaimer: The information contained in this section may have been updated after the patient was seen, as this information can be updated by other users. Social History Smoking Status: Unknown if ever smoked alcohol intake: never substance use type: denies use current occupational status: other Travel in the last 8 weeks: None household members: spouse housing: house current occupation: Teacher current occupational exposures/hazards: No caffeine: Yes ROS Obtained: Yes All systems reviewed & no additional complaints except as documented Physical Exam General General appearance: other (in pain ) Respiratory Respiratory exam: Absent respiratory distress Cardiovascular Cardiovascular exam: Present regular rate Extremities Exam Extremities exam: Present other (Patient is holding her arm abducted and internally rotated, she has significant tenderness palpation over the middle shaft of the humerus also tenderness palpation over the left shoulder and left elbow no obvious soft tissue swelling on exam range of motion limited secondary to pain.) Neurological Exam Neurological exam: Present alert and oriented X3 Medical Decision Making Justin Inquiry Pt receiving controlled substance: No Vital Signs:
--- NOTE | 2022-12-27 10:02 | XR_ITS ---
FINAL REPORT CLINICAL HISTORY: Fell [employer], numbness in distal portion of Lt humerus. FINDINGS: LEFT HUMERUS 2 views of the left humerus were obtained. There is a transverse fracture through the mid humeral diaphysis. There is full shaft with posterior and lateral displacement of the distal fracture fragment. There is no soft tissue abnormality. IMPRESSION: Transverse fracture of the mid humerus as described. Reviewed, Interpreted and Dictated by Kushal Perea MD Transcribed by Anne-Marie Carlson Authenticated and [facility]
[2022-12-27 10:03] VITALS: BP 120/78
[2022-12-27 10:04] VITALS: BP 120/78; PULSE 77; RESP 16; TEMP 36.5; O2SAT 98; BMI 30.4
--- NOTE | 2022-12-27 10:19 | PC.NURSE ---
Pillows and blankets placed to assist with LUE support. Pt to radiology.
--- NOTE | 2022-12-27 10:40 | PC.NURSE ---
paged ortho, awaiting call back from Dr. Levy
--- NOTE | 2022-12-27 10:44 | PC.NURSE ---
Per , okay to drink.
--- NOTE | 2022-12-27 11:00 | PC.NURSE ---
VAUGHN QUIGLEY speaking with Dr. Fortune
--- NOTE | 2022-12-27 11:11 | PC.NURSE ---
Speaking with Kyara in rehab regarding humerus clamshell brace.
--- NOTE | 2022-12-27 11:18 | PC.NURSE ---
ER MD at BS speaking with patient regarding update on POC; SO at BS
--- NOTE | 2022-12-27 11:22 | PC.NURSE ---
Our PT department did not have the specific brace that Dr. Fortune suggested. Calling [facility] to check and they also do not carry them according to Pavel.
--- NOTE | 2022-12-27 11:41 | PC.NURSE ---
Spoke with Tejal who stocks the braces in our PT department and she reports she will not be able to have a clamshell brace today. She can order one if we are wanting her to order it and have it sent somewhere. Will follow up with Dr. Sanders at this time
--- NOTE | 2022-12-27 11:48 | PC.NURSE ---
ANOTHER DOSE OF PAIN MEDS GIVEN AND SHE IS RESTING AT THIS TIME
[2022-12-27 12:28] VITALS: BP 121/73; PULSE 71; RESP 17; TEMP 36.8; O2SAT 97
--- NOTE | 2022-12-27 12:32 | PC.NURSE ---
LUE placed in sling. Pt tolerated. Pt assisted out of ED via wheelchair. Pt assisted into truck (vehicle).
== END 2022-12-27 12:29 | disposition home or self-care (01) ==
PROVIDERS: Emergency Provider Student in an Organized Health Care Education/Training Program; PCP Physician Assistant
DX: S42.302A Unspecified fracture of shaft of humerus, left arm, initial encounter for closed fracture (principal); W01.0XXA Fall on same level from slipping, tripping and stumbling without subsequent striking against object, initial encounter
CPT/HCPCS: 29105; 73060; 96374; 96375; 96376; 99284; J2405

== ENCOUNTER → 2023-01-03 15:38 | Outpatient (CLI) | payer BC, SELFPAY ==
--- NOTE | 2023-01-03 15:46 | XR_ITS ---
FINAL REPORT CLINICAL HISTORY: humerus fracture, exam done with humerus in hard splint. COMPARISON: 12/27/2022 FINDINGS: LEFT HUMERUS 2 views were obtained. There is improved alignment of the mid humeral diaphyseal fracture. There is no evidence of callus formation. There is no soft tissue abnormality. IMPRESSION: Improved alignment of the mid humeral diaphyseal fracture with no evidence of callus formation. Reviewed, Interpreted and Dictated by Samson Deutsch III, MD Transcribed by Anne-Marie Carlson Authenticated and . [facility]
--- NOTE | 2023-01-03 15:47 | XR_ITS ---
FINAL REPORT CLINICAL HISTORY: ankle PAIN FINDINGS: LEFT ANKLE Three views of the left ankle were obtained. There is no acute fracture or dislocation. There are mild degenerative changes. There is a small plantar calcaneal spur. There is, medial greater than lateral, soft tissue swelling. IMPRESSION: Mild degenerative changes. Swelling with no acute bony abnormality. Reviewed, Interpreted and Dictated by Samson Deutsch III, MD Transcribed by Anne-Marie Carlson Authenticated and [facility]
== END ==
LOC: RAD 15:40
PROVIDERS: PCP Physician Assistant; Visit Provider Orthopaedic Surgery
DX: S42.302A Unspecified fracture of shaft of humerus, left arm, initial encounter for closed fracture (principal); M79.602 Pain in left arm; M25.572 Pain in left ankle and joints of left foot
CPT/HCPCS: 73060; 73610

== ENCOUNTER → 2023-01-04 14:33 | Outpatient (CLI) | payer BC, SELFPAY ==
--- NOTE | 2023-01-04 14:39 | XR_ITS ---
FINAL REPORT CLINICAL HISTORY: Pt fx humerus x 1 wk ago, pain in elbow since. NKT since. FINDINGS: LEFT ELBOW 4 views were obtained. There is no acute fracture or dislocation of the elbow. Again seen is a fracture of the mid humeral diaphysis. The joint spaces are intact. There is no soft tissue abnormality. IMPRESSION: No acute bony abnormality of the left elbow. Reviewed, Interpreted and Dictated by Samson Deutsch III, MD Transcribed by Stefanie Woody Authenticated and [facility]
== END ==
LOC: RAD 14:34
PROVIDERS: PCP Physician Assistant; Visit Provider Orthopaedic Surgery
DX: S42.302A Unspecified fracture of shaft of humerus, left arm, initial encounter for closed fracture (principal)
CPT/HCPCS: 73080

== ENCOUNTER 2023-01-04 15:07 | Outpatient (RCR) | payer BC, SELFPAY | END 2023-01-04 16:00 | disposition home or self-care (01) | LOC: PT 15:07 | PROVIDERS: Visit Provider Orthopaedic Surgery | DX: M25.572 Pain in left ankle and joints of left foot (principal); S42.302A Unspecified fracture of shaft of humerus, left arm, initial encounter for closed fracture | CPT/HCPCS: 97760 ==

== ENCOUNTER → 2023-01-17 15:52 | Outpatient (CLI) | payer BC, SELFPAY ==
--- NOTE | 2023-01-17 15:57 | XR_ITS ---
PROCEDURE INFORMATION: Exam: XR Left Humerus Exam date and time: 01/17/2023 4:04 PM Age: 42 years old Clinical indication: Injury or trauma; Fall; Fracture, traumatic injury; Closed fracture; Humerus; Left TECHNIQUE: Imaging protocol: Radiologic exam of the left humerus. Views: 2 or more views. COMPARISON: CR XR HUMERUS LT 01/03/2023 4:09 PM FINDINGS: Bones/joints: Transverse fracture of the mid diaphysis of the left humerus. Soft tissues: Moderate soft tissue swelling at the fracture site. IMPRESSION: Transverse fracture of the mid diaphysis of the left humerus.
== END ==
PROVIDERS: PCP Physician Assistant; Visit Provider Orthopaedic Surgery
DX: M79.602 Pain in left arm (principal); S42.302A Unspecified fracture of shaft of humerus, left arm, initial encounter for closed fracture
CPT/HCPCS: 73060

== ENCOUNTER → 2023-01-31 15:38 | Outpatient (CLI) | payer BC, SELFPAY ==
--- NOTE | 2023-01-31 15:40 | XR_ITS ---
FINAL REPORT CLINICAL HISTORY: left humerus fx, follow-up COMPARISON: January 03, 2023 FINDINGS: LEFT HUMERUS Two views show a mild comminuted and angulated fracture of the mid humerus. Angulation is new from the prior exam and measures 15 degrees. Minimal callus formation is noted, new from the prior exam. IMPRESSION: Early evidence of fracture healing with mild angulation which is new. Reviewed, Interpreted and Dictated by Malachi Enriquez MD Transcribed by Stefanie Woody Authenticated and [facility]
== END ==
LOC: RAD 15:39
PROVIDERS: PCP Physician Assistant; Visit Provider Orthopaedic Surgery
DX: M79.602 Pain in left arm (principal); S42.302A Unspecified fracture of shaft of humerus, left arm, initial encounter for closed fracture
CPT/HCPCS: 73060

== ENCOUNTER → 2023-02-01 12:59 | Outpatient (CLI) | payer BC, SELFPAY ==
[2023-02-01 14:07] LABS: Calcium 9.2 mg/dl (8.4-10.2)
[2023-02-14 17:18] LABS: 1,25 Dihydroxy Vitamin D 40 pg/mL (.); 1,25-Dihydroxy, Vitamin D-2 <10 pg/mL (.); 1,25-Dihydroxy, Vitamin D-3 40 pg/mL (.)
== END ==
PROVIDERS: PCP Physician Assistant; Visit Provider Orthopaedic Surgery
DX: M79.602 Pain in left arm (principal); S42.302A Unspecified fracture of shaft of humerus, left arm, initial encounter for closed fracture
CPT/HCPCS: 36415; 82310; 82652

== ENCOUNTER → 2023-02-14 15:30 | Outpatient (CLI) | payer BC, SELFPAY ==
--- NOTE | 2023-02-14 15:37 | XR_ITS ---
FINAL REPORT CLINICAL HISTORY: lt humerus fx COMPARISON: 01/31/2023 FINDINGS: Left humerus Two views were obtained. There is a fracture of the mid humeral diaphysis. There is partial improvement in the medial angulation of the distal fracture fragment. No significant callus formation is identified. IMPRESSION: Fracture as above. Reviewed, Interpreted and Dictated by Samson Deutsch III, MD Transcribed by Shanon Castellon Authenticated and [facility]
== END ==
LOC: RAD 15:33
PROVIDERS: PCP Physician Assistant; Visit Provider Orthopaedic Surgery
DX: S42.302A Unspecified fracture of shaft of humerus, left arm, initial encounter for closed fracture (principal)
CPT/HCPCS: 73060

== ENCOUNTER → 2023-05-15 12:00 | Outpatient (CLI) | payer BC, SELFPAY ==
[2023-05-15 18:05] LABS: Adenovirus,PCR Not Detected (NotDetected); Bordetella Pertussis Not Detected (NotDetected); Chlamydophila Pneumoniae, PCR Not Detected (NotDetected); Coronavirus 229E Not Detected (NotDetected); Coronavirus NL63 Not Detected (NotDetected); Coronavirus OC43 Not Detected (NotDetected); Coronovirus HKU1,PCR Not Detected (NotDetected); Human Metapneumovirus Not Detected (NotDetected); Influenza A, PCR Not Detected (NotDetected); Influenza AH1, 2009 Not Detected (NotDetected); Influenza AH1, PCR Not Detected (NotDetected); Influenza AH3,PCR Not Detected (NotDetected); Influenza B, PCR Not Detected (NotDetected); Mycoplasma Pneumoniae, PCR Not Detected (NotDetected); Parainfluenza 1, PCR Not Detected (NotDetected); Parainfluenza 2, PCR Not Detected (NotDetected); Parainfluenza 3, PCR Not Detected (NotDetected); Parainfluenza 4, PCR Not Detected (NotDetected); Respiratory Syncytial Virus Not Detected (NotDetected); Rhinovirus/Enterovirus Not Detected (NotDetected)
[2023-05-15 23:30] LABS: Coronavirus 19, PCR Detected (NotDetected)
== END ==
PROVIDERS: PCP Nurse Practitioner Family; Visit Provider Nurse Practitioner Family
DX: U07.1 COVID-19 (principal); J02.9 Acute pharyngitis, unspecified
CPT/HCPCS: 87070; 87581; 87632; 87798

== ENCOUNTER 2023-05-23 14:00 | Outpatient (RCR) | payer BC, SELFPAY | END 2023-05-23 14:05 | disposition home or self-care (01) | LOC: OT 14:00 | PROVIDERS: PCP Physician Assistant; Visit Provider Orthopaedic Surgery | DX: S42.202A Unspecified fracture of upper end of left humerus, initial encounter for closed fracture (principal) | CPT/HCPCS: 97010; 97014; 97016; 97035; 97110; 97140; 97164; 97165; 97530; G0283 ==

== ENCOUNTER → 2023-06-26 15:19 | Outpatient (CLI) | payer OTHER, SELFPAY ==
[2023-06-26 17:41] LABS: Free Thyroxine Index 3.1 ug/dL (5.93-13.13); T4 (Thyroxine) 10.2 ug/dl (5.53-11.0); Triiodothryronine (T3) Uptake 30 % (23.5-40.5)
[2023-06-26 17:55] LABS: Thyroid Stimulating Hormone 0.11 uIU/mL (0.465-4.68)
[2023-06-28 08:53] LABS: Triiodothyronine (T3) Free 3.8 pg/mL (2.0-4.4)
== END ==
PROVIDERS: PCP Physician Assistant; Visit Provider Nurse Practitioner Obstetrics & Gynecology
DX: E03.9 Hypothyroidism, unspecified (principal)
CPT/HCPCS: 36415; 84436; 84443; 84479; 84481

== ENCOUNTER 2023-11-18 15:19 | Outpatient (CLI) | payer OTHER, SELFPAY | END 2023-11-18 23:59 | LOC: LAB.DROPOF 11-19 15:20 | PROVIDERS: PCP Student in an Organized Health Care Education/Training Program; Visit Provider Student in an Organized Health Care Education/Training Program | DX: J02.9 Acute pharyngitis, unspecified (principal) | CPT/HCPCS: 87070 ==

== ENCOUNTER 2025-01-13 16:33 | Outpatient (CLI) | payer OTHER, SELFPAY ==
[2025-01-13 11:12] LABS: Microscopic, Urine URINE MICROSCOPIC (MICROSCOPIC)
[2025-01-13 11:33] LABS: Basophils # 0.1 K/mm3 (0-0.2); Basophils % 0.6 % (0.1-2.0); Eosinophils # 0.2 Kmm3 (0.0-0.4); Eosinophils % 1.9 % (0.1-12.0); Hematocrit 39.3 % (37.0-47.0); Lymphocytes # 2.7 K/mm3 (0.7-4.5); Lymphocytes % 33.7 % (10-50); Mean Corpuscular HGB Conc 33.1 g/dL (31.8-35.4); Mean Corpuscular Hemoglobin 29.6 pg (27.0-31.2); Mean Corpuscular Volume 89.5 fl (81-99); Mean Platelet Volume 10.1 fl (7.4-10.4); Monocytes # 0.5 K/mm3 (0.1-1.0); Monocytes % 6.7 % (1.7-9.3); Neutrophils # 4.6 K/mm3 (1.8-7.8); Neutrophils % 56.9 % (37.0-80.0); Nucleated Red Blood Cells # 0 10^3/uL; Nucleated Red Blood Cells % 0 %; Platelet Count 477 K/mm3 (142-424); Red Blood Count 4.39 M/mm3 (4.20-5.40); Red Cell Distribution Width 12.9 % (11.5-17.5); Red Cell Distribution Width-SD 42.1 fL; White Blood Count 8.1 K/mm3 (4.8-10.8)
[2025-01-13 11:35] LABS: Appearance,Urine CLEAR (Clear); Bilirubin,Urine Negative (Negative); Blood, Urine Negative (Negative); Color,Urine YELLOW (Yellow); Glucose,Urine (UA) Negative (Negative); Ketones,Urine Negative (Negative); Leukocyte Esterase,Urine 1+ (Negative); Nitrate,Urine Negative (Negative); PH,Urine 6.5 (5.0-8.5); Protein,Urine Negative (Negative); Urobilinogen,Urine 0.2 EU/dl (0.2)
[2025-01-13 11:44] LABS: Bacteria,Urine Trace /lpf; Squamous Epithelial Cell,Urine Occasional #/hpf (0-5); WBC,Urine Occasional #/hpf (0-3)
[2025-01-13 12:02] LABS: Hemoglobin A1C 5.7 % (4.0-6.0)
[2025-01-13 12:04] LABS: Alanine Aminotransferase 27 U/L (12-78); Albumin Level 4.1 g/dl (3.5-5.0); Albumin/Globulin Ratio 1.4 (1.1-1.8); Alkaline Phosphatase 80 U/L (38-126); Anion Gap 10.9 mEq/L (5-15); Aspartate Amino Transferase 27 U/L (14-36); Bilirubin,Total 0.4 mg/dl (0.2-1.3); Blood Urea Nitrogen 12 mg/dl (7-17); Calcium 9.4 mg/dl (8.4-10.2); Carbon Dioxide 27 mmol/L (22.0-30.0); Chloride 108 mmol/L (98-107); Chol/HDL Ratio 5.1 (1-3.5); Cholesterol 242 mg/dl (140-200); Estimated Glomerular Filt Rate 68 ml/min (>60); GFR (African American) 83 ML/MIN (>60); Glucose 99 mg/dl (74-100); HDL Cholesterol 47 mg/dl (40-60); Potassium 4.9 mmoL/L (3.5-5.1); Sodium 141 mmol/L (136-145); Total Protein,Serum 7.1 g/dl (6.3-8.2); Triglycerides 111 mg/dl (30-150); VLDL Cholesterol 22 mg/dL (0-40)
[2025-01-13 12:11] LABS: Iron 54 ug/dL (37-170)
[2025-01-13 12:15] LABS: Direct LDL Cholesterol 148.57 mg/dL (100-129)
[2025-01-13 12:21] LABS: 25-OH Vitamin D, Total 31.4 ng/mL (30-100); Total Iron Binding Capacity 342 ug/dL (265-497)
[2025-01-13 12:31] LABS: Thyroid Stimulating Hormone 6.13 uIU/mL (0.465-4.68)
[2025-01-13 12:48] LABS: Ferritin 27.4 ng/ml (6.24-137)
[2025-01-13 12:49] LABS: Hepatitis C Ab Qual. W/ RFX NEGATIVE (Negative)
[2025-01-13 12:50] LABS: Vitamin B12 340 pg/mL (239-931)
[2025-01-14 11:06] LABS: HIV Combo NEGATIVE (Negative)
== END 2025-01-13 23:59 | disposition home or self-care (01) ==
LOC: LAB.DROPOF 16:34
PROVIDERS: PCP Nurse Practitioner Family; Visit Provider Nurse Practitioner Family
DX: Z11.4 Encounter for screening for human immunodeficiency virus [HIV] (principal); Z11.59 Encounter for screening for other viral diseases; Z13.1 Encounter for screening for diabetes mellitus; Z13.220 Encounter for screening for lipoid disorders; R53.83 Other fatigue; R60.0 Localized edema; Z68.33 Body mass index [BMI] 33.0-33.9, adult; Z76.89 Persons encountering health services in other specified circumstances; D64.9 Anemia, unspecified; E03.9 Hypothyroidism, unspecified; F41.9 Anxiety disorder, unspecified; F32.A Depression, unspecified; I34.1 Nonrheumatic mitral (valve) prolapse; R01.1 Cardiac murmur, unspecified; E66.9 Obesity, unspecified
CPT/HCPCS: 80053; 80061; 81001; 82306; 82607; 82728; 83036; 83540; 83550; 84439; 84443; 85025; 86803; 87086; 87389

== ENCOUNTER 2025-02-10 08:46 | Outpatient (CLI) | payer OTHER, SELFPAY ==
[2025-02-10 15:45] LABS: Free T4 (Free Thyroxine) 0.97 ng/dl (0.78-2.19)
[2025-02-10 17:30] LABS: Thyroid Stimulating Hormone 4.55 uIU/mL (0.465-4.68)
--- OUTSIDE RECORDS SUMMARY | 2025-02-10 22:48 | XMS_ITS ---
Author Organization Unknown Medications Medication Instructions Effective Dates (start - stop) Status thyroid (CARE HOME) 30 MG Oral Tab let [OUTREACH NURSE Thyroid] [id number]:00:00.000+00:0 0 - Completed escitalopram 20 MG Oral Tablet 2 [id number]:00:00.000+00:00 - Completed thyroid (CARE HOME) 30 MG Oral Tab let [OUTREACH NURSE Thyroid] [id number]:00:00.000+00:0 0 - Completed ondansetron 4 MG Oral Tablet 11-26-05:00:00.000+00:00 - Completed {21 (methylprednisolone 4 MG Oral Tablet) } Pack [id number]:00:00.000+00:0 0 - Completed escitalopram 20 MG Oral Tablet 2 [id number]:00:00.000+00:00 - Completed escitalopram 20 MG Oral Tablet 2 [id number]:00:00.000+00:00 - Completed levothyroxine sodium 0.05 MG Oral Tablet [id number]:00:00.000+00:0 0 - Completed levothyroxine sodium 0.05 MG Oral Tablet [id number]:00:00.000+00:0 0 - Completed escitalopram 20 MG Oral Tablet 2 [id number]:00:00.000+00:00 - Completed acetaminophen 325 MG / hydrocodone bitartrate 7.5 MG Oral Tablet [id number]:00:00.000+00:0 0 - Completed acetaminophen 325 MG / hydrocodone bitartrate 5 MG Oral Tablet [id number]:00:00.000+00:0 0 - Completed Patient Care team information Name Category Status Period Participants - - Proposed period not known -
== END 2025-02-10 23:59 | disposition home or self-care (01) ==
LOC: LAB.DROPOF 22:47
PROVIDERS: PCP Nurse Practitioner Family; Visit Provider Nurse Practitioner Family
DX: E03.9 Hypothyroidism, unspecified (principal)
CPT/HCPCS: 84439; 84443

== ENCOUNTER 2025-09-09 07:52 | Outpatient (CLI) | payer BC, SELFPAY ==
--- OUTSIDE RECORDS SUMMARY | 2025-09-09 07:56 | XMS_ITS | Clinical Summary ---
Author Organization [facility] Address [address] [place] [address] Care Team Providers Care Electron Beam Welder Name Role Phone Demetria Dias Primary Care Provider [phone] Allergies Active Allergy Reactions Criticality Noted Date Comments Diphenhydramine Anaphylaxis High 02/26/2023 Diazepam Nausea And Vomiting,Rash Medium 02/26/2023 Medications Calcium Carbonate 1500 (600 Ca) MG tablet Take 1 tablet by mouth Every 12 (Twelve) Hours. 3 Active Cholecalciferol (Vitamin D3) 1.25 MG (37691 UT) capsule TAKE 2 CAPSULES BY MOUTH ONCE A WEEK 3 Active escitalopram (LEXAPRO) 20 MG tablet TAKE 1 TABLET BY MOUTH ONCE DAILY FOR DEPRESSION 3 Active levothyroxine (SYNTHROID, LEVOTHROID) 50 MCG tablet TAKE 1 TABLET BY MOUTH ONCE DAILY FOR THYROID HORMONE 3 Active OFFBEARER SEWER PIPE Thyroid 30 MG tablet TAKE 1 TABLET BY MOUTH TWICE DAILY FOR THYROID 3 Active ondansetron (Zofran) 4 MG tablet Take 1 tablet by mouth Every 8 (Eight) Hours As Needed for Nausea or Vomiting. 12 tablet 02/26/2023 4:45 PM EDT 3 Active HYDROcodone-kinza taminophen (NORCO) 7.5-325 MG per tabletIndicatio ns:Closed displaced transverse fracture of shaft of left humerus, initial encounter Take 1-2 tablets by mouth Every 4 (Four) Hours As Needed for Moderate Pain. 24 tablet 02/26/2023 4:45 PM EDT 3 Active Active Problems No known active problems Social History Tobacco Use Types Packs/Day Years Used Date Smoking Tobacco: Never Assessed Abuse Screen Answer Date Recorded Unsafe at Home or Work/School Not on file Feels Threatened by Someone? Not on file Does Anyone Keep You from Co ntacting Others or Doint Things Outside the Home? Not on file 03/09/2024 Physical Sign of Abuse Present Not on file 0 03/09/2024 Housing Stability Answer Date Recorded Current Living Arrangements Not on file 02/21 Potentially Unsafe Housing Conditions Not on cadence e 03/09/2024 Family and Community Support Answer Dann e Recorded Help with Day-to-Day Activities Not on file 07/05/2023 Lonely or Isolated Not on file 07/05/2023 Employment Answer Date Recorded Do you want help finding or keeping work or a kierra b? Not on file 07/05/2023 Disabilities Answer Date Recorded Concentrating, Remembering, or Making Decisions Difficulty Not on file 03/09/2024 Doing Errands Independently Difficulty Not on fi le 03/09/2024 Education Answer Date Recorded Help with school or training? Not on file Preferred Language Not on file 07/05/2023 Comments No Sex and Gender Information Value Date Recorded Sex Assigned at Not on file Legal Sex Female 11:19 AM EDT Gender Identity Not on file Sexual Orientation Not on file Last Filed Vital Signs Vital Sign Reading Time Taken Comments Blood Pressure 113/61 02/26/2023 5:15 PM EDT Pulse 70 02/26/2023 5:15 PM EDT Temperature 36.6 C (97.8 F) 02/26/2023 5:15 PM EDT Respiratory Rate 16 02/26/2023 5:15 PM EDT Oxygen Saturation 93% 02/26/2023 5:15 PM EDT Inhaled Oxygen Concentration - - Weight - - Height - - Body Mass Index - - Plan of Treatment Health Maintenance Due Date Last Done Comments ANNUAL PHYSICAL 1981 Annual Gynecologic Pelvic an d Breast Exam 1981 HEPATITIS C SCREENING 1981 TDAP/TD VACCINES (1 - Tdap) 02/03/2000 MAMMOGRAM 2021 INFLUENZA VACCINE 04/23/2025 07/31/2022, 11/03/2016 Pneumococcal Vaccine 0-49 Aged Out No longer eligible based on patient's age to complete this topic Medical Devices Implanted Type Area Employment Law Specialist Device Identifier Shelf Expiration Date Model / Serial / Lot Allogrft Bone Cbm Vivigen Prefil 3cc 1p/U - [id number] - [id number] Implanted:Qty: 1 on 02/26/2023 by Juan Pablo Iraheta Jr., MD at [facility] Implant Left: Arm [facility] 01/24/2024 [id number] / [id number] / NA Scrw Compr Freefix Ti 4.5x20mm - [id number] Implanted:Qty: 3 on 02/26/2023 by Juan Pablo Iraheta Jr., MD at [facility] Implant Left: Arm [employer] [id number] / / Scrw Compr Freefix Ti 4.5x18mm - [id number] Implanted:Qty: 3 on 02/26/2023 by Juan Pablo Iraheta Jr., MD at [facility] Implant Left: Arm SKE[employer] [id number] / / Plt Hum/Midshaft Freefix Nrw 136mm - [id number] Implanted:Qty: 1 on 02/26/2023 by Juan Pablo Iraheta Jr., MD at [facility] Implant Left: Arm SKELET[employer]YNAM[employer] [id number] / / Dev Contrl Tiss Stratafix Spiral Mncryl Ud 3/0 Pls 60cm - [id number] Implanted:Qty: 2 on 02/26/2023 by Juan Pablo Iraheta Jr., MD at [facility] Implant Left: Arm [employer] 04/22/2024 [id number] / / [id number] Explanted Type Area Employment Law Specialist Device Identifier Shelf Expiration Date Model / Serial / Lot Kwire Std/Unique/Tp Freefix W/Stop Ss [id number] - [id number] Explanted:Qty: 3 on 02/26/2023 at [facility] Implant Left: Arm SKELETAL DYNAMICS [id number] / / Insurance [employer] Care Teams Electron Beam Welder Relationship Specialty Start Date End Date Demetria Dias PA PCP - General Physician User Experience Team Lead 02/26/23
--- OUTSIDE RECORDS SUMMARY | 2025-09-09 07:56 | XMS_ITS ---
Author Organization Unknown ENCOUNTERS Encounter Performer Location Date Diagnosis Diagnosis Status Emergency [address] [facility] [place] [address] [id number] [facility] [address] [facility] [place] [address] [id number] [facility] [address] [place] [address] [id number] [facility] *Note: Encounters from your own facility or health system may be excluded. Allergies, Adverse Reactions, Alerts Allergen Type Severity Identification Date fentanyl drug allergy 0 [id number] diphenhydramine drug allergy 0 [id number] hydrocodone drug allergy 0 [id number] diazepam drug allergy 0 [id number] Medications Name Date Quantity Days Supplied GPI Number
--- NOTE | 2025-09-09 08:00 | MM_ITS ---
PROCEDURE INFORMATION: Exam: MG Bilateral Screening 3D Mammography Exam date and time: 09/09/2025 8:13 AM Age: 45 years old Clinical indication: Screening exam. TECHNIQUE: Imaging protocol: Bilateral Screening tomosynthesis and 2D mammography including computer-aided detection (CAD) when performed. COMPARISON: No relevant prior studies available. FINDINGS: MAMMOGRAPHY: Breast composition: There are scattered areas of fibroglandular density. Mass: No suspicious masses. Architectural distortion: None. Calcifications: No suspicious calcifications. Asymmetric density: None. Skin thickening: None. Axillary adenopathy: None. IMPRESSION: No mammographic evidence of malignancy. Annual screening is recommended unless otherwise clinically indicated. ASSESSMENT: BI-RADS Category 1: Negative.
--- NOTE | 2025-09-09 08:30 | US_ITS ---
FINAL REPORT TECHNIQUE: Sonographic images of the thyroid gland were obtained in the longitudinal and transverse planes. CLINICAL HISTORY: hypothyroid COMPARISON: None FINDINGS: The right lobe measures 1.0 x 2.7 x 0.8 cm. There is a tiny colloid cyst. There are no solid nodules. The left lobe measures 0.8 x 2.9 x 0.6 cm. The left lobe is homogeneous. There are no cystic or solid nodules. The isthmus measures 1 mm. This is normal. IMPRESSION: No concerning thyroid abnormality. Tiny colloid cyst of no significance. Reviewed, Interpreted and Dictated by Julienne Ambriz MD Transcribed by Maria C Oconnell Authenticated and [facility]
--- NOTE | 2025-09-09 09:00 | CA_ITS ---
APPROVED REPORT EXAM: Comprehensive 2D, Doppler, and color-flow Echocardiogram General Partner: Melany Reyes RT(R) Ht: 5 ft 3 in Wt: 180lbs BSA: 1.85 BP: 124/82 mmHg Indications: murmur, hx of MVP per patient, edema 2D Dimensions EF AP4 60.70 % GL Strain -21.3 % M-Mode Dimensions RVDd 2.67 cm (0.9-2.6) LA Diam 2.51 cm (1.9-4.0) LVDd 3.69 cm (3.5-5.7) LVDs 2.79 cm (3.5-5.7) IVSd 0.61 cm (0.6-1.1) PWd 0.64 cm (0.6-1.1) EF (Teich) 49.30% FS 24.40% EDV (Teich) 57.80 mL ESV (Teich) 29.30 mL LV Diastology E Decel Time 217 (160-240 msec) E/A Ratio 1.2 Mitral Valve MV E Max [place]. 73.0 (40-130 cm/s) MV A Velocity 59.0 (40-130 cm/s) E/A Ratio 1.24 MV PHT 63.0 ms Tricuspid Valve TR P. Velocity 220.00 cm/s Left Ventricle The left ventricle is normal size. Left ventricular systolic function is normal. The left ventricular ejection fraction is within the normal range. There is normal left ventricular wall thickness. There is normal LV segmental wall motion. The left ventricular diastolic function is normal. LVEF is 55% Right Ventricle The right ventricle is normal size. The right ventricular systolic function is normal. Atria The left atrium size is normal. The right atrium size is normal. There is no color Doppler evidence of interatrial shunt. Aortic Valve The aortic valve opens well. There is no hemodynamically significant aortic valvular stenosis. No aortic regurgitation is present. Mitral Valve The mitral valve is normal in structure. No evidence of mitral valve stenosis. Trace mitral regurgitation is present. Tricuspid Valve The tricuspid valve leaflets are thin and pliable. Mild tricuspid regurgitation. RVSP is 20-25 mmHg. Pulmonic Valve The pulmonary valve is grossly normal in structure. Trace pulmonic valve regurgitation is present. Great Vessels The aortic root is normal in size. IVC is normal in size and collapses >50% with inspiration. Pericardium There is no pericardial effusion. Other Information Study Quality: Fair Conclusion Normal biventricular systolic function. Mild TR. Electronically signed by : Syeda Isabel MD 09/19/2025 13:42:04
== END 2025-09-09 23:59 | disposition home or self-care (01) ==
LOC: RAD 07:53
PROVIDERS: PCP Nurse Practitioner Family; Visit Provider Nurse Practitioner Family
DX: Z12.31 Encounter for screening mammogram for malignant neoplasm of breast (principal); I08.1 Rheumatic disorders of both mitral and tricuspid valves; E03.9 Hypothyroidism, unspecified; R92.323 Mammographic fibroglandular density, bilateral breasts
CPT/HCPCS: 76536; 77063; 77067; 93306